=== PATIENT | male | born 2000 | race Caucasian/White ===

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

== ENCOUNTER 2023-02-13 17:23 | Inpatient (IN) | payer MEDICAID, OTHER ==
[~2023-02-13] VITALS: Ht 180.3 cm; Wt 59.1 kg
[2023-02-13] MEDS ORDERED: SODIUM CHLORIDE 0.9% 1,000 ML IV ONE (20:00)
[2023-02-13] MEDS ORDERED: BARIUM SULFATE 0.1% SUSPENSION 450 ML BOTTLE PO ONE (20:00)
[2023-02-13 21:57] LABS: ANION GAP 14 mmol/L (8-16); BASOPHILS % (AUTO) 0.2 % (0.0-2.0); CALCIUM, TOTAL 9.6 mg/dL (8.8-10.5); CARBON DIOXIDE 23 mmol/L (22-29); CHLORIDE 101 mmol/L (98-107); CREATININE 0.89 mg/dL (0.60-1.30); EOSINOPHILS % (AUTO) 0.6 % (1.0-6.0); GLOMERULAR FILTR. RATE CALC > 60 mL/min (>60); GLUCOSE,RANDOM 104 mg/dL (70-110); HEMATOCRIT 45.1 % (41-53); HEMOGLOBIN 14.9 g/dL (13.5-17.5); LYMPHOCYTES # (AUTO) 1.1 K/uL (1.0-4.8); LYMPHOCYTES % (AUTO) 13.2 % (22.0-44.0); MEAN CORPUSCULAR HEMOGLOBIN 26.9 pg (26.0-34.0); MEAN CORPUSCULAR HGB CONC 33.1 G/dL (31.0-37.0); MEAN CORPUSCULAR VOLUME 81 fL (80-100); MONOCYTES # (AUTO) 1.1 K/uL (0.1-1.0); NEUTROPHILS # (AUTO) 5.9 K/uL (1.8-7.7); PLATELET COUNT (AUTO) 280 K/uL (150-450); POTASSIUM 3.9 mmol/L (3.5-5.1); RED BLOOD CELL COUNT(AUTO) 5.55 MIL/uL (4.50-5.90); RED CELL DISTRIBUTION WIDTH 12.4 % (11.5-14.5); SODIUM SERUM 138 mmol/L (136-145)
[2023-02-13 22:03] LABS: ALANINE AMINOTRANSFERASE 80 U/L (12-78); ALKALINE PHOSPHATASE 82 U/L (46-116); ASPARTATE AMINOTRANSFERASE 110 U/L (15-37); BILIRUBIN,TOTAL 1.7 mg/dL (0.1-1.0); LIPASE 52 U/L (73-393); TOTAL PROTEIN, SERUM 8.3 g/dL (6.4-8.2)
[2023-02-13 22:06] LABS: LACTIC ACID 1.1 mmol/L (0.4-2.0)
[2023-02-14] MEDS ORDERED: SODIUM CHLORIDE 0.9% 1,000 ML IV ONE
[2023-02-14] MEDS ORDERED: ACETAMINOPHEN 500 MG TABLET PO ONE
[2023-02-14] MEDS: ONDANSETRON HCL 4 MG/2 ML VIAL IVP ONE ×2 (00:15→00:19)
[2023-02-14] MEDS ORDERED: IOHEXOL 350 MG/ML 100 ML VIAL ONE (00:29)
[2023-02-14] MEDS ORDERED: SODIUM CHLORIDE 0.9% 100 ML ONE (00:29)
[2023-02-14 01:02] LABS: COVID AG,FIA SOURCE NASOPHARYNGEAL
[2023-02-14 01:17] LABS: INFLUENZA TYPE A NEGATIVE FOR TYPE A (NEGATIVE); INFLUENZA TYPE B NEGATIVE FOR TYPE B (NEGATIVE)
[2023-02-14] MEDS ORDERED: ONDANSETRON HCL 4 MG/2 ML VIAL IVP PRN (02:00)
[2023-02-14] MEDS ORDERED: ACETAMINOPHEN 325 MG TABLET PO PRN (02:00)
[2023-02-14] MEDS ORDERED: PANTOPRAZOLE SODIUM 40 MG/VIAL IVP ONE (02:15)
[2023-02-14] MEDS ORDERED: RINGERS SOLUTION,LACTATED 1,000 ML IV SCH (02:15)
[2023-02-14] MEDS: IBUPROFEN 600 MG TABLET PO ONE ×2 (04:28→05:28)
[2023-02-14] MEDS ORDERED: BENZONATATE 100 MG CAPSULE PO ONE (05:00)
[2023-02-14] MEDS ORDERED: HEPARIN SODIUM,PORCINE 5,000 UNITS/ML VIAL SQ SCH (08:00)
[2023-02-14 08:35] VITALS: BP 115/64; PULSE 82; RESP 18; TEMP 97.6
[2023-02-14] MEDS ORDERED: AZITHROMYCIN 500 MG TABLET PO ONE (08:45)
[2023-02-15] MEDS ORDERED: AZITHROMYCIN 250 MG TABLET PO SCH (09:00)
== END 2023-02-14 12:30 | disposition left against medical advice (07) | DRG 152 ==
LOC: EMS 17:25 → 6N 02-14 06:19
PROVIDERS: ADMIT Internal Medicine; ATTEND Internal Medicine
DX: J06.9 Acute upper respiratory infection, unspecified (principal); E43 Unspecified severe protein-calorie malnutrition; Z68.1 Body mass index [BMI] 19.9 or less, adult; Z53.21 Procedure and treatment not carried out due to patient leaving prior to being seen by health care provider; R79.89 Other specified abnormal findings of blood chemistry; J45.909 Unspecified asthma, uncomplicated; Z88.6 Allergy status to analgesic agent
CPT/HCPCS: 71045; 74177; 76700; 80053; 83605; 83690; 85025; 87430; 87804; 99285; C9113; G0480; J2405; J7030; J7050; J7120; Q9967; 36415-L1; 36415-TC